=== PATIENT | female | born 1990 | race Caucasian/White ===

== ENCOUNTER 2024-08-14 08:07 | Outpatient (AMB) | payer BC, SELFPAY ==
--- NOTE | 2024-08-14 08:08 | A.OFFPC_ITS ---
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 Pt c/o shortness of breath and chest tightness when bending down on and off for 2 years started after the . Patient gained 20 lbs. Pt walks briskly daily for 3 miles and denies exercise induced chest pain no shortness a breath palpitations. Patient denies PND orthopnea. She has a miscarriage 2 months ago and is trying to get . [facility] Surgical History (Updated 08/14/24 @ 08:13 by JAGJIT Segura) Hx of appendectomy Family History (Updated 08/14/24 @ 08:33 by Liana Bravo MD) Father Hypertension Hyperlipemia Mother No problems noted. 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 1. Little interest or pleasure in doing things: not at all 2. Feeling down, depressed, or hopeless: not at all 3. Trouble falling or staying asleep, or sleeping too much: not at all 4. Feeling tired or having little energy: not at all 5. Poor appetite or overeating: not at all 6. Feeling bad about yourself - or that you are a failure or have let yourself or your family down: not at all 7. Trouble concentrating on things, such as reading the newspaper or watching television: not at all 8. Moving or speaking so slowly that other people could have noticed. Or the opposite - being so fidgety or restless that you have been moving around a lot more than usual: not at all 9. Thoughts that you would be better off or of hurting yourself in some way: not at all Total score: 0 Depression Screening Interpretation: Negative Depression Screening Done: Yes 39552 - PHQ-9 Billing: Yes Source: Developed by Drs. Siddhartha Hammer, Layla Weathers, Stephen Ramsey and colleagues, with an educational consuelo from [employer]. Thrive Questionnaire Date Thrive assessed: 08/14/24 I am a: Patient What is your living situation today?: I have a steady place to live Within the past 12 months, did the food you bought not last and you didn't have the money to get more?: Never true Within the past 12 months, did you worry whether your food would run out before you got money to buy more?: Never true Do you have trouble paying for medicines?: No Do you have trouble getting transportation to medical appointments?: No Do you have trouble paying your heating and electricity bill?: No Do you have trouble taking care of your child, family member or friend?: No Do you have trouble with day-to-day activities such as bathing, preparing meals, shopping, managing finances, etc.?: No Are you currently unemployed and looking for a job?: No Are you interested in more education?: No Please select the resources that you would like help with: None Currently or been in a relationship where the following occur: No concerns reported THRIVE Score: 0 AUDIT C Alcohol Use Questionnaire (AUDIT-C) 1. How often do you have a drink containing alcohol?: Never 3. How often do you have six or more drinks on one occasion?: Never Total Score: 0 MARGARITA-7 AMB Questionnaire MARGARITA-7 Date MARGARITA - 7 assessed: 08/14/24 Feeling nervous, anxious, or on edge: 0 = Not at all Not being able to stop or control worryin = Not at all Worrying too much about different things: 0 = Not at all Trouble relaxin = Not at all Being so restless that it is hard to sit still: 0 = Not at all Becoming easily annoyed or irritable: 0 = Not at all Feeling afraid as if something awful might happen: 0 = Not at all Total MARGARITA-7 score (0-4 normal; 5-9 mild; 10-14 moderate; 15-21 severe): 0 Source: Developed by Drs. Siddhartha Hammer, Layla Weathers, Stephen Ramsey and colleagues, with an educational consuelo from [employer]. MARGARITA-7 Assessment Billing MARGARITA-7 Assessment Tool: MARGARITA-7 Assessment 60712 Review of Systems Const All systems reviewed & are unremarkable except as noted in HPI and below Eyes Reports no additional complaints ENT Reports no additional complaints Card Reports no additional complaints Resp Reports no additional complaints GI Reports no additional complaints Reports no additional complaints Physical exam (Primary Care) Vital Signs: Last Vital Signs Pulse 67 08/14/24 08:09 BP 96/64 08/14/24 08:09 Pulse Ox 98 08/14/24 08:09 Oxygen Delivery Method Room Air 08/14/24 08:09 BMI result Body Mass Index 28.2 Tobacco/Smoking Status: Tobacco use Status Tobacco use date assessed 08/14/24 08/14/24 08:17 Patient Tobacco Use Status Never used Tobacco 08/14/24 08:32 e-Cigarette/Vaping Use Never Used 08/14/24 08:32 PHQ-9: PHQ-9 Score PHQ-9: Total score 0 08/14/24 08:29 Depression Screening Interpretation: Negative Thrive Assessment: Date of Thrive Assessment Date Thrive assessed 08/14/24 08/14/24 08:17 Currently or been in a relationship where the following occur: No concerns reported Const General: no acute distress HENMT Head: Yes normal to inspection Face and sinus: Yes normal facial exam Throat: Yes posterior oropharynx normal Eyes General: appearance normal, both eyes and all related structures Chest Chest palpation & inspection: normal inspection of the chest Resp Effort & Inspection: normal respiratory effort Auscultation: clear to auscultation bilaterally Cardio Rhythm: regular rhythm Heart sounds: S1 normal heart sound present and S2 normal heart sound present GI Inspection: Yes normal to inspection Palpation (GI): Soft to palpation Percussion: Yes normal to percussion Auscultation: normal bowel sounds Coding Level of Care Code New Pt Prev Care 18-39yr(22196 Diagnoses Annual physical exam Z00. SOB (shortness of breath) R06.02 Iron deficiency anemia D50.9 Additional Codes MARGARITA-7 Assessment Billing - MARGARITA-7 Assessment Tool: MARGARITA-7 Assessment 67068 ([id number]) PHQ-9 - 60792 - PHQ-9 Billing: Yes ([id number]) Assessment & Plan Assessment & Plan (1) Annual physical exam: Code(s): Z00. - Encounter for general adult medical examination without abnormal findings Category: Medical Plan: Well-balanced diet regular physical activity discussed with the patient she will return for fasting blood work. Patient is established with OBGYN (2) SOB (shortness of breath): Code(s): R06.02 - Shortness of breath Category: Medical Plan: Obtain chest x-ray and echocardiogram (3) Iron deficiency anemia: Code(s): D50.9 - Iron deficiency anemia, unspecified Category: Medical Plan: Check iron count continue iron supplement Orders: Orders Comprehensive [place]. Panel Fast Today Z00.00 - Encounter for general adult medical examination without abnormal findings Lipid Panel Today Z00.00 - Encounter for general adult medical examination without abnormal findings CA echo transthoracic complete Today R06.02 - Shortness of breath XR chest 1V Today R06.02 - Shortness of breath Complete Blood Count Auto Diff Today Z00.00 - Encounter for general adult medical examination without abnormal findings IRON PROFILE Today Z00.00 - Encounter for general adult medical examination without abnormal findings TSH reflex Free T4 Today Z00.00 - Encounter for general adult medical examination without abnormal findings UA w Microscopic Today Z00.00 - Encounter for general adult medical examination without abnormal findings Vitamin D 25-OH Total Today Z00.00 - Encounter for general adult medical ex amination without abnormal findings
[2024-08-14 08:09] VITALS: BP 96/64; PULSE 67; O2SAT 98; BMI 27.3
== END 2024-08-14 09:15 | disposition home or self-care (01) ==
PROVIDERS: Visit Provider Internal Medicine
DX: Z00.00 Encounter for general adult medical examination without abnormal findings (principal); R06.02 Shortness of breath; D50.9 Iron deficiency anemia, unspecified

== ENCOUNTER → 2024-08-14 08:07 | Outpatient (BNVA) | payer BC, SELFPAY | PROVIDERS: Visit Provider Internal Medicine | DX: Z00.01 Encounter for general adult medical examination with abnormal findings (principal); R06.02 Shortness of breath; D50.9 Iron deficiency anemia, unspecified | CPT/HCPCS: 96127 ==

== ENCOUNTER 2024-08-16 08:35 | Outpatient (REF) | payer BC, SELFPAY ==
[2024-08-16 10:11] LABS: MANUAL DIFF FLAG NO
[2024-08-16 10:15] LABS: Appearance Urine Clear; Color Urine Yellow; Glucose Urine UA Negative (Negative); Leukocyte Esterase Urine Trace (Negative); Nitrite Urine Negative (Negative); UMIC TRIGGER UA YES; Urine Blood Negative (Negative); Urine Ketones Negative (Negative); Urine Protein Negative (Neg-Trace)
[2024-08-16 10:19] LABS: Bacteria Urine None Seen (None Seen); Hyaline Casts Urine 0-2 /LPF (0-2); RBC Urine 0-2 /HPF (0-2); WBC Urine 0-5 /HPF (0-5)
[2024-08-16 10:22] LABS: Basophils Percent Auto 0.6 % (0-2); Eosinophils Absolute Auto 0.1 X10*3/uL (0.0-0.4); Hematocrit 37.2 % (37.0-47.0); Hemoglobin 12.6 g/dl (12.0-16.0); Imm Gran Abs Auto 0.01 X10*3/uL (0.00-0.03); Imm Gran Pct Auto 0.1 % (0.0-0.4); Lymphocytes Absolute Auto 2.5 X10*3/uL (1.2-4.9); Lymphocytes Percent Auto 35.8 % (20-40); Mean Corpuscular HGB Conc 33.9 g/dl (31.0-35.0); Mean Corpuscular Hemoglobin 29.6 pg (27.0-33.0); Mean Corpuscular Volume 87.5 fL (80.0-98.0); Mean Platelet Volume 8.9 fL (9.4-12.3); Monocytes Absolute Auto 0.5 X10*3/uL (0.1-1.2); Monocytes Percent Auto 7.4 % (2-11); Neutrophils Absolute Auto 3.7 x10*3/uL (2.0-8.3); Neutrophils Percent Auto 54.1 % (45-73); Platelet Count 264 X10*3/uL (160-400); Red Blood Count 4.25 X10*6/uL (4.20-5.50); Red Cell Distribution Width 12.1 % (11.0-16.0); White Blood Count 6.9 X10*3/uL (4.8-10.8)
[2024-08-16 10:52] LABS: Alanine Aminotransferase 17 U/L (0-31); Albumin Level 4.1 g/dL (3.5-5.0); Alkaline Phosphatase 53 U/L (39-117); Anion Gap 9 (12-20); Aspartate Amino Transferase 21 U/L (5-31); Bilirubin Total 0.5 mg/dL (0.0-1.0); Blood Urea Nitrogen 12 mg/dL (9-16); Calcium 9.3 mg/dL (8.4-10.2); Carbon Dioxide 26 mmol/L (22-29); Chloride 105 mmol/L (96-108); Cholesterol 164 mg/dL (<200); Estimated Glomerular Filt Rate > 60; Glucose Fasting 87 mg/dL (60-99); HDL Cholesterol 42 mg/dL (>40); Iron 143 mcg/dL (30-160); LDL Cholesterol Calculated 111 mg/dL (<100); Percent Iron Saturation 48 % (15-50); Potassium 4.3 mmol/L (3.3-5.1); Sodium 136 mmol/L (135-145); TSH reflex Free T4 1.45 uIU/mL (0.32-4.0); Total Iron Binding Capacity 297 mcg/dL (228-428); Total Protein 7.4 g/dL (6.5-8.0); Triglycerides 58 mg/dL (<150); Unsaturated Iron Binding 154 ug/dL; Vitamin D 25-OH Total 44.8 ng/mL (>30)
== END 2024-08-16 08:36 | disposition home or self-care (01) ==
LOC: HO.HMGCLDS 08:35
PROVIDERS: PCP Internal Medicine; Visit Provider Internal Medicine
DX: Z00.00 Encounter for general adult medical examination without abnormal findings (principal)
CPT/HCPCS: 36415; 80053; 80061; 81001; 82306; 83540; 84443; 85025

== ENCOUNTER → 2024-09-11 09:56 | Outpatient (REF) | payer BC, SELFPAY ==
--- NOTE | 2024-09-11 09:59 | CA_ITS ---
Transthoracic Echocardiogram Patient (Last, First, Middle): Tegan Douglas, Gender: Female Date of : 1990 Age: 34 Procedure Date: 09/11/2024 Procedure Type: Transthoracic Echocardiogram Location: OP Height: 160.02 cm Weight: 69.85 kg BSA: 1.73 m2 Heart Rate: 67 bpm BP: 96 / 64 mmHg Breakdown Person: SB Referring MD: Liana Bravo MD Symptoms: R06.02 - Shortness of breath Study Quality: Adequate ECG Rhythm: Sinus Conclusions: - The left ventricular systolic function is normal. The calculated ejection fraction is 63% by biplane method. - No obvious valvular pathology seen on this study. Findings Left Ventricle Normal left ventricular cavity size. There is normal left ventricular wall thickness. The left ventricular systolic function is normal. The calculated ejection fraction is 63% by biplane method. There is no evidence of regional wall motion abnormalities. Diastolic function is normal for age. Right Ventricle Normal right ventricular cavity size and systolic function. Atria Both atria are normal in size. Aortic Valve There is a normal trileaflet aortic valve. There is no aortic valve stenosis. There is no aortic valve regurgitation. Mitral Valve The mitral valve appears normal. There is trace mitral valve regurgitation. There is no mitral valve stenosis. Pulmonic Valve The pulmonic valve is likely normal. Tricuspid Valve Normal tricuspid valve structure. There is trace tricuspid valve regurgitation. There is no evidence of pulmonary hypertension. Great Vessels The asc aorta and aortic arch are normal in size. Venous The inferior vena cava is normal in size and collapses greater than 50% with inspiration. Pericardium/Pleural There is no evidence of pericardial effusion. Prior Study Comparison No prior study available for comparison. Recommendations, Care & Conclusions No obvious valvular pathology seen on this study. Measurements 2D Linear Measurements IVSd: 0.86 0.6-0.9/0.6-1.0 cm LVIDd: 4.82 3.9-5.3/4.2-5.9 cm LVIDd Index: 2.79 2.4-3.2/2.2-3.1 cm/m2 LVIDs: 2.84 2.0-3.6 cm LVPWd: 0.65 0.7-1.1 cm LA Diam: 3.60 2.7-3.8/3.0-4.0 cm LAIDs Index: 2.08 1.5-2.3 cm/m2 LV Mass: 147.70 67-162/88-224 g LV Mass Index: 85.37 43-95/49-115 g/m2 LVOT Diam: 2.00 3.0+(-)1.3 cm 2D Systolic Function EF 4C: 57.90 >55% EF 2C: 68.10 >55% EF BiP: 62.60 >55% Mitral Valve MV Pk E: 0.72 MV PK A: 0.46 MV Decel Time: 158.00 E/A: 1.50 E'Lateral: 10.80 E'Medial: 5.98 E/E' Med: 12.00 E/E' Lat: 6.60 PHT: 46.00 MVA PHT: 4.78 Decel [place]: 4.54 Aortic Valve AoV Pk Parveen: 1.27 AoV Pk Grad: 6.00 TATUM: 2.73 LVOT LVOT Pk Parveen: 1.07 LVOT Mn Parveen: 0.75 LVOT VTI: 0.23 LVOT Pk Grad: 5.00 LVOT Mn Grad: 3.00 LVOT Diam: 2.00 LVOT Area: 3.14 Diastolic Function MV Pk E: 0.72 MV Pk A: 0.46 E/A: 1.50 E'Medial: 5.98 E/E' Med: 12.00 E' Laterial: 10.80 E/E' Lat: 6.60 Right Ventricle TAPSE (mm): 20.40 TVS' Parveen: 14.00 Tricuspid Valve TR Pk Parveen: 1.96 TR Pk Grad: 15.00 RA Press: 3.00 RVSP: 18.00 Great Vessels Aorta Sinus of Valsalva: 2.80 2.0-3.5 cm Ao Asc: 2.80 2.1-3.4 cm Ao Arch: 2.30 Pulmonary Valve PV Pk Parveen: 0.91 Peak PV Grad: 3.00 Updated in Other Vendor System with Status of Final Edgar Uribe MD electronically signed on 09/12/2024 3:56:53 PM with status of Final
== END ==
LOC: HO.CARD 09:56
PROVIDERS: PCP Internal Medicine; Visit Provider Internal Medicine
DX: R06.02 Shortness of breath (principal)
CPT/HCPCS: 93306

== ENCOUNTER → 2024-09-11 09:59 | Outpatient (BNV) | payer BC, SELFPAY | PROVIDERS: PCP Internal Medicine; Visit Provider Internal Medicine | DX: R06.02 Shortness of breath (principal) | CPT/HCPCS: 93306 ==

== ENCOUNTER 2025-08-26 08:09 | Outpatient (AMB) | payer BC, SELFPAY ==
[2025-08-26 08:11] VITALS: BP 106/70; PULSE 66; RESP 16; TEMP 36.8; O2SAT 96; BMI 25.9
--- NOTE | 2025-08-26 08:11 | A.OFFPC_ITS ---
Vital Signs 08/26/25 08:11 Height 5 ft 3 in Weight 146 lb BMI 25.9 BP 106/70 Blood Pressure Location Lt brachial Position Sitting Respiration 16 Pulse 66 Pulse Source Pulse Oximeter Temp 98.2 F Temp Source Oral Pulse Oximetry (%) 96 Oxygen Delivery Method Room Air Intake Visit Reasons: PE Intake Note: Pt is here today for PE. Allergies No Known Allergies Allergy (Verified 08/26/25 08:13) Medication List - Last Reconciled 08/26/25 by Liana Bravo MD multivitamin with iron (Daily Vitamin with Iron) PO Tobacco use date assessed: 08/26/25 Dental Screening Dental Screen Date: 08/26/25 Did you have a dental visit in the last 12 months?: Yes Did you have a dental problem in the last 6 months where you did not have access to dental care?: No Was dental information given to patient?: Patient has dentist HPI PE HPI Details Pt presents for PE. Patient had a baby boy 4 months ago. She had severe iron deficiency anemia during the and received iron infusion [facility] Medical History (Updated 08/26/25 @ 08:28 by Liana Bravo MD) Annual physical exam Iron deficiency anemia Surgical History Hx of appendectomy Family History Father Hypertension Hyperlipemia Mother No problems noted. 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 1. Little interest or pleasure in doing things: not at all 2. Feeling down, depressed, or hopeless: not at all 3. Trouble falling or staying asleep, or sleeping too much: not at all 4. Feeling tired or having little energy: not at all 5. Poor appetite or overeating: not at all 6. Feeling bad about yourself - or that you are a failure or have let yourself or your family down: not at all 7. Trouble concentrating on things, such as reading the newspaper or watching television: not at all 8. Moving or speaking so slowly that other people could have noticed. Or the opposite - being so fidgety or restless that you have been moving around a lot more than usual: not at all 9. Thoughts that you would be better off or of hurting yourself in some way: not at all Total score: 0 Depression Screening Interpretation: Negative Depression Screening Done: Yes 40834 - PHQ-9 Billing: Yes Source: Developed by Drs. Siddhartha Hammer, Layla Weathers, Stephen Ramsey and colleagues, with an educational consuelo from [employer]. Thrive Questionnaire Date Thrive assessed: 08/26/25 I am a: Patient What is your living situation today?: I have a steady place to live Within the past 12 months, did the food you bought not last and you didn't have the money to get more?: Never true Within the past 12 months, did you worry whether your food would run out before you got money to buy more?: Never true Do you have trouble paying for medicines?: No Do you have trouble getting transportation to medical appointments?: No Do you have trouble paying your heating and electricity bill?: No Do you have trouble taking care of your child, family member or friend?: No Do you have trouble with day-to-day activities such as bathing, preparing meals, shopping, managing finances, etc.?: No Are you currently unemployed and looking for a job?: No Are you interested in more education?: No Please select the resources that you would like help with: None Currently or been in a relationship where the following occur: No concerns reported THRIVE Score: 0 AUDIT C Alcohol Use Questionnaire (AUDIT-C) 1. How often do you have a drink containing alcohol?: Never 3. How often do you have six or more drinks on one occasion?: Never Total Score: 0 MARGARITA-7 AMB Questionnaire MARGARITA-7 Date MARGARITA - 7 assessed: 08/26/25 Feeling nervous, anxious, or on edge: 0 = Not at all Not being able to stop or control worryin = Not at all Worrying too much about different things: 0 = Not at all Trouble relaxin = Not at all Being so restless that it is hard to sit still: 0 = Not at all Becoming easily annoyed or irritable: 0 = Not at all Feeling afraid as if something awful might happen: 0 = Not at all Total MARGARITA-7 score (0-4 normal; 5-9 mild; 10-14 moderate; 15-21 severe): 0 Source: Developed by Drs. Siddhartha Hammer, Layla Weathers, Stephen Ramsey and colleagues, with an educational consuelo from [employer]. MARGARITA-7 Assessment Billing MARGARITA-7 Assessment Tool: MARGARITA-7 Assessment 35843 Review of Systems Const All systems reviewed & are unremarkable except as noted in HPI and below Eyes Reports no additional complaints ENT Reports no additional complaints Card Reports no additional complaints Resp Reports no additional complaints GI Reports no additional complaints Reports no additional complaints Physical exam (Primary Care) Vital Signs: Last Vital Signs Temp 98.2 F 08/26/25 08:11 Pulse 66 08/26/25 08:11 Resp 16 08/26/25 08:11 BP 106/70 08/26/25 08:11 Pulse Ox 96 08/26/25 08:11 Oxygen Delivery Method Room Air 08/26/25 08:11 BMI result Body Mass Index 25.9 Tobacco/Smoking Status: Tobacco use Status Tobacco use date assessed 08/26/25 08/26/25 08:17 Patient Tobacco Use Status Never used Tobacco 08/26/25 08:11 e-Cigarette/Vaping Use Never Used 08/26/25 08:11 PHQ-9: PHQ-9 Score PHQ-9: Total score 0 08/26/25 08:17 Depression Screening Interpretation: Negative Thrive Assessment: Date of Thrive Assessment Date Thrive assessed 08/26/25 08/26/25 08:19 Currently or been in a relationship where the following occur: No concerns reported Const General: no acute distress HENMT Head: Yes normal to inspection Ears: TM's normal bilaterally Mouth: Normal oral and palatal mucosa present Throat: Yes posterior oropharynx normal Eyes General: appearance normal, both eyes and all related structures Neck Neck: Yes no lymphadenopathy and Yes supple Resp Effort & Inspection: normal respiratory effort Auscultation: clear to auscultation bilaterally Cardio Rhythm: regular rhythm Heart sounds: S1 normal heart sound present and S2 normal heart sound present GI Inspection: Yes normal to inspection Palpation (GI): Soft to palpation Percussion: Yes normal to percussion Auscultation: normal bowel sounds Office Procedures Flu Questionnaire Does the patient have a severe egg allergy?: No Does the patient have severe life threatening allergies?: No Does the patient have a fever or illness today?: No Has the patient ever had Guillain-[employer] Syndrome?: No Has the patient ever had any past reaction to a flu shot?: No Immunizations Fluarix [id number] (PF) 45 mcg (15 mcg x 3)/0.5 mL IM syringe Performing Provider: Liana Bravo MD Performing Location: [facility] Administered by: JAGJIT Segura on 08/26/25 08:38 Dose Route Admin Location Dispensed Lot Number Expiration Date NDC Probate Paralegal 0.5 mL IM Left Deltoid 0.5 mL [id number] 03/24/26 12026-062-25 [employer] VIS Given Date VIS Provided VIS Publication Date 08/26/25 Single Vaccine 24 Eligibility Eligibility Date Funding Source Not [facility] Eligible 08/26/25 Private Coding Level of Care Code Est Pt Prev Care 18-39y(75749) Diagnoses Iron deficiency anemia D50.9 Annual physical exam Z00.00 Additional Codes MARGARITA-7 Assessment Billing - MARGARITA-7 Assessment Tool: MARGARITA-7 Assessment 50419 ([id number]) PHQ-9 - 59519 - PHQ-9 Billing: Yes ([id number]) Assessment & Plan Assessment & Plan (1) Iron deficiency anemia: Code(s): D50.9 - Iron deficiency anemia, unspecified Category: Medical Plan: Continue multivitamin with iron check iron and CBC count today (2) Annual physical exam: Code(s): Z00.00 - Encounter for general adult medical examination without abnormal findings Category: Medical Plan: Well-balanced diet regular physical activity discussed with the patient she is 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 Panel Fast Today D50.9 - Iron deficiency anemia, unspecified, Z00.00 - Encounter for general adult medical examination without abnormal findings Hemoglobin A1c Today D50.9 - Iron deficiency anemia, unspecified, Z00.00 - Encounter for general adult medical examination without abnormal findings Complete Blood Count Auto Diff Today D50.9 - Iron deficiency anemia, unspecified, Z00.00 - Encounter for general adult medical examination without abnormal findings
--- OUTSIDE RECORDS SUMMARY | 2025-08-26 08:14 | XMS_ITS | Clinical Summary ---
Author Organization [facility] Address [address] [place] [address] Phone Care Team Providers Care [employer] Repairer Name Role Phone Lavonne Valdivia MD Primary Care Provider [phone] Allergies No known active allergies Medications vit no.124/iron/foli c ( VITAMIN ORAL) Take 1 tablet by mouth daily. Active ibuprofen (ADVIL,MOTRIN) 600 MG tablet Take 1 tablet (600 mg total) by mouth every 6 (six) hours as needed. 60 tablet 1 02/15/2022 Active Active Problems Problem Noted Date Diagnosed Date Diastasis of rectus abdominis 06/05/2022 Assessment & Plan (06/05/2022 11:43 AM EDT): Patient is 3 months pp. Small diastasis recti. Discussed PT referral, pt expressed interest, referral placed. Routine health maintenance 06/01/2022 Assessment & Plan (06/05/2022 11:41 AM EDT): CPE: 06/05/2022 3.5 months , s/p , currently Diet and exercise: Healthy diet, regular exercise counseling Immunizations: Due for flu shot, do not have in the office today, will get from local pharmacy Colon cancer screening: Avg risk, start discussing screening at age 45. Cervical cancer screening: NILM, HPV negative in 10/2020, next pap due in 10/2025 Breast cancer screening: Avg risk, start discussing screening at age 40. STI screening: negative 06/2021 HIV/Hep C: Negative 06/2021 CVD risk management: lipids, A1c ordered Depression/anxiety screening: phq2, gad2 negative SDOH screening: negative Dental screening: Due, will schedule Medications: Reviewed and reconciled Encounter to establish care 06/01/2022 Assessment & Plan (06/05/2022 11:36 AM EDT): 31 year old female presents to establish care with new PCP, see routine health maintenance for assessment and plan. DENISSE (iron deficiency anemia) 06/01/2022 Assessment & Plan (06/05/2022 11:35 AM EDT): History of DENISSE during , currently taking ferrous sulfate 325mg BID. Repeat CBC today, as ordered by OB. Consider daily, every other day, or DC if H/H improved. Research study patient 02/14/2022 Overview (02/14/2022): The patient is enrolled in the 4P Study and documentation of informed consent was performed. Following delivery, she will be contacted for a brief perineal symptom survey. Bilateral carpal tunnel syndrome 12/08/2021 Overview (04/15/2022): Had bilateral carpal tunnel prior to now worse, using soft splint, will try hard split on right, comfort mesures d/wpt. Warm water helps. Splint helped right will try left. 04/13/22 f/u orthopedic hand service Dr Martin as still having issues w/ wrists bilaterally pp Assessment & Plan (06/05/2022 11:36 AM EDT): She used splint since baby born, sx improved ~6 weeks . Never saw ortho hand, used wrist splint during . Follow up if sx reoccur. Assessment & Plan (02/03/2022 12:49 AM EDT): Still issue using splints Family history of factor V Leiden mutation 11/30 Overview (10/05/2021): Mother had factor v leiden mutation. Pt had testing which was negative for factor v leiden. Family history of deep venous thrombosis 021 Overview (09/07/2021): Grandfather had dvt and pe Mother had something similar, not sure if on blood thinner Her mother had factor v leiden 01/11/21 RESULT: [id number] PROTHRO GENE MUT : Negative APCR-MUT : Negative APCR : 3.4 (NORMAL) PROT C FUNC : 94 (NORMAL) PROT S : 81 (NORMAL) INTERPRETATION: Protein C activity level is in the reference range. Free protein S level is in the reference range. No evidence of activated protein C resistance, and, therefore, there is no evidence for a factor V Leiden. Direct genetic testing for the prothrombin [id number] mutation, performed at [facility], is negative. Direct genetic testing for the factor V Leiden mutation, performed at [facility], is negative. Pt tested all negative for this patient so no special treatment needed Resolved Problems Problem Noted Date Diagnosed Date Resolved Date Normal intrauterine , antepartum 02/13/2022 04/12/2022 Anemia affecting , antepartum 11/10/2021 06/01/2022 Overview (04/15/2022): Third tri HCT 29.8. Fe script sent to pharmacy to take BID. (Colace also sent) Fe studies w/ low normal ferritin 21 and transferrin sat 16% and elevated tibc 478 c/w fe def. Recheck cbc in 4 weeks to see whether needs fe infusions. 12/08 Hgb 10.4 Hct 31.5; Will need repeat CBC and full anemia panel 01/05/22 hct up one point 31.5 to 32.6 and now fe just above nl 162 and fe sat better, don't think adding fe infusion would add anything so would keep her on fe bid 02/13/22 hct 32.7 check pp hct 04/13/22 on fe Rh negative status during pr egnancy in first trimester 07/15/2021 06/01/2022 Overview (12/07/2021): O neg [ ] Rhogam at 28wks or if bleeding, 11/10/21 o neg abs neg, rhogam given. [ ] Rhogam <48h of delivery if baby rh pos d/w pt H/O allergy to penicillin 07/15/2021 Overview (01/25/2022): Reports she was told she was given pcn as a baby and had bloody nose and hives. Never had pcn again. D/wpt will send allergy e consult re possible allergy testing if appropriate. Per Dr Oliver e consult which will review w/ pt next visit From the remote and minor reaction history, it is very likely that Tegan is no longer allergic. Allergy testing booked 12/14/21, negative testing, pcn allergy removed. Currently 07/15/2021 2 Overview (02/09/2022): Low Risk Visit Schedule: < 11 weeks RN telephone OB intake Initial Visit-10 weeks, plan visits every 4 weeks, neg cfdna boy aware 14-16 20 weeks with anatomic survey. 09/22/21 nl survey 20+3 wks edc 02/06 23+3 appt 28 weeks with GLT 129 and /3\ labs hct 29.8, TDAP done, Rhogam done, establish home BP cuff plan (i.e. patient opal provide or we will provide) 11/10/21 34 weeks Enrollment for Virtual visits. 37 weeks with GBS / neg pump form done pt needs to send in discuss contraception plan, condoms 38 weeks virtual visit 39 weeks virtual visit 40 weeks, and then scheduled induction 02/14 and bpp w/ efw 02/11 : Virtual visit(s) Currently 07/15/2021 1 Overview (08/10/2021): Resolve duplicate Immunizations Immunization Administration Dates Next Due Influenza Quadrivalent Preservative Free IM 06/26,08/12/2020 Rho (D) Immune Globulin 11/10/2021 Tdap 11/10/2021 Family History Medical History Relation Comments Hypertension Father Cervical cancer Maternal Aunt Clotting disorder Maternal Grandfather Diabetes Maternal Grandfather No Known Problems Maternal Grandmother Endometriosis Mother Venous thrombosis Mother Prostate cancer Paternal Grandfather No Known Problems Paternal Grandmother No Known Problems Son Relation Status Comments Father Alive Maternal Aunt Alive Maternal Grandfather Maternal Grandmother Alive Mother Alive Paternal Grandfather Paternal Grandmother Alive Son Alive Social History Tobacco Use Types Packs/Day Years Used Date Smoking Tobacco: Never Smokeless Tobacco: Never Alcohol Use Standard Drinks/Week Comments Not Currently 0 (1 standard drink = 0.6 oz pur e alcohol) occ Child or Family Care Answer Date Record ed Do you have problems with on e of the following making it difficult for you to work, study, or receive health care? No 06/01/2022 Education Answer Date Recorded Are you interested in more education? Not on nghia e 06/01/2024 Are you concerned about learning? Not on file 06/01/2024 No 06/01/2024 No 06/01/2024 Food Answer Date Recorded Within the past 6 months we worried whether our food would run out before we got money to buy more. Never True 06/01/2022 Within the past 6 months the food we bought just didn't last and we didn't have enough money to get more. Never True Residential Stability Answer Date Recor ded What is your housing situation today? I have leida sing 06/01/2022 How many times have you move d in the past 12 months? Zero (I did not move) 06/01/2022 06 Are you worried that in t he next 2 months, you may not have your own housing to live in? No 06/01/2022 Paying for Meds Answer Date Recorded Do you have trouble paying for medicines? No 06/01/2022 Paying Utility Bills Answer Date Record ed Do you have trouble paying your heating or elect ricity bill? No 06/01/2022 Transportation Answer Date Recorded Has the lack of transportati on kept you from medical appointments or from getting medications? No 06/01/2022 Unemployment Answer Date Recorded Are you currently unemployed or working on a part-time or temporary basis, and looking for work? No 06/01/2022 Digital Access Answer Date Recorded No 02/18/2023 No 02/18/2023 No 02/18/2023 Reliable internet access at home? Not on file 02/18/2023 Device with a working camera? 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 Not on file Not on nghia e Not on file Last Filed Vital Signs Vital Sign Reading Time Taken Comments Blood Pressure 110/72 06/01/2022 2:32 PM EDT Pulse 74 06/01/2022 2:32 PM EDT Temperature 36.6 C (97.9 F) 02/15/2022 9:37 AM EDT Respiratory Rate 18 02/15/2022 9:37 AM EDT Oxygen Saturation 98% 02/15/2022 9:37 AM EDT Inhaled Oxygen Concentration - - Weight 67.9 kg (149 lb 12.8 oz) 06/01/2022 2:32 PM EDT Height 157.5 cm (5' 2 ) 02/13/2022 12:1 2 PM EDT Body Mass Index 27.4 02/13/2022 12:12 PM EDT Plan of Treatment Health Maintenance Due Date Last Done Comments DEPRESSION SCREENING 06/01/2023 06/01/2022 PAP SMEAR 11/16/2023 11/16/2020 INFLUENZA VACCINE (#1) 2025 07/14/2021, 2019 COVID-19 VACCINE (2024- season) 2025 09/16/2021, 02/06/2021, 01/09/2021 Adult Td,Tdap Booster 11/10/2031 11/10/2021 HEPATITIS C SCREENING Completed 07/14/2021 , 07/14/2021, 07/14/2021, Additional history exists HIV ONE-TIME SCREENING (18-65 YEARS) Completed 07/14/2021 SMOKING STATUS SCREENING (Once After 26 Yrs) Completed 06/01/2022 HEPATITIS A VACCINES Aged Out No long er eligible based on patient's age to complete this topic HIB VACCINES Aged Out No longer eligi ble based on patient's age to complete this topic MENINGOCOCCAL VACCINES (ACWY) Aged Out No longer eligible based on patient's age to complete this topic MENINGOCOCCAL VACCINES (B) Aged Out N o longer eligible based on patient's age to complete this topic PNEUMOCOCCAL VACCINES (0-49 years) Aged Out No longer eligible based on patient's age to complete this topic Medical Devices Not on file Procedures Procedure Name Priority Date/Time Associated Diagnosis Comments HEPATITIS C ANTIBODY, QUALITATIVE Routine 07/14/2021 10:28 AM EDT PAP TEST Routine 11/16/2020 12:00 AM EST from Last 3 Months or Most Recently Relevant to Health Maintenance Results * Hepatitis C antibody, qualitative (07/14/2021 10:28 AM EDT) HCV ANTIBODY Negative Negative [facility] Comment:Antibodies to HCV no t detected. Does not exclude the possibility of exposure to HCV. Blood 07/14/2021 10:2 8 AM EDT 07/14/2021 11:01 AM EDT us Tarsha Radford MD LAB BLOOD BKR [place]AB[place] [address] * Pap Smear (11/16/2020 12:00 AM EST) 11/16/2020 11/18/2020 Narrative [facility] - 11/26/2020 1:25 PM EST CASE: [id number] PATIENT: TEGAN DOUGLAS Date: 1990 Sex: F [facility] Department of Pathology [address] [place] [address] CLIA License No.: [id number] Pulmonary Physical Therapist: Dr. Parker Miller Physician: SARAH SAPP M.D. Procedure Date: 11/16/2020 Software Program Manager: DOMINIK Smith (ASCP) RAIL FLAW DETECTOR OPERATOR Molecular Addendum THINPREP PAP TEST, CERVICAL FINAL CYTOLOGIC INTERPRETATION SPECIMEN ADEQUACY: Satisfactory for evaluation; transformation zone present. INTERPRETATION: NEGATIVE FOR INTRAEPITHELIAL LESION OR MALIGNANCY. AUTOMATED REVIEW: This specimen was prescreened using the ThinPrep Imaging System. CLINICAL DATA LMP: 10/28/20; Last pap 2018. TOTAL SLIDES 1 PROCEDURES Screening or High Risk ThinPrep with Auto Pre-Screen - [facility] 1 Final Diagnosis by Kenya LEHMAN (ASCP), Electronically signed on Tuesday November 24, 2020 at 10:55:11AM ADDENDUM HPV TEST: Negative for messenger RNA (mRNA) of the high-risk human papillomavirus (HPV) types 16, 18, 31, 33, 35, 39, 45, 51, 52, 56, 58, 59, 66, and 68 by Aptima HPV assay. [facility] Molecular Diagnostics & Histocompatibility Lab [facility] [address] #: [id number] Pulmonary Physical Therapist: Maxwell Li MD Final Diagnosis by Kenya LEHMAN (ASCP), on Tuesday November 24, 2020 at 10:55:11AM HPV Addendum by Anny Jones, Electronically signed on November at 01:25:43PM us Sarah Sapp MD, MPH CYTOLOGY ORDERABLE S Edited Result - Final Performing Organization Address City/State/[facility] Co de Phone Number [facility] [address] [place] [phone] from Last 3 Months or Most Recently Relevant to Health Maintenance Insurance [place] [address] Member Subscriber Plan / Payer (Ef fective 2022-Present) Name:Tegan Douglas Relation to Subscriber:Spouse Name:MEL NARANJOANDRE Zamora Date of :1991 (Home) Address: [address] [place] [address] Payer ID:[id number] (NAIC) Type:O Address: [address] [place], [place] [address] [facility] Advance Directives For more information, please contact: [phone] (9AM - 5PM [facility], Monday-Monday) Documents on File Type Date Recorded Patient Stick Puller Expl anation Healthcare Proxy 02/03/2022 Healthcare Proxy * Full Code (Latest Code Status on File) Date Activated Date Inactivated Comments 02/13/2022 12:38 PM Question Answer Comments Code Status Confirmed With: Patient Care Teams [employer] Repairer Relationship Specialty Start Date End Date Lavonne Valdivia MD [address] [place] [address] [email or web address] PCP - General Family Medicine 04/22/22 Additional Source Comments The information contained in this document represents components of the legal health record. It is not the complete legal health record.[facility]
--- OUTSIDE RECORDS SUMMARY | 2025-08-26 08:14 | XMS_ITS | Encounter Summary ---
Author Organization [facility] Address [address] [place] [address] Phone Care Team Providers Care Rail Loader Name Role Phone Pcp, Unknown Primary Care Provider Unavailabl e Mamta Campuzano MD Unavailable Mamta Campuzano MD Primary Care Provider [email or web address] Lavonne Valdivia MD Primary Care Provider [phone] Lavonne Valdivia MD Unavailable Encounter Details Date Type Department Care Team (Late st Contact Info) Description 07/15/2020 Telephone [facility] OBGYN Gynecology Resident [address] [place] [phone] Unknown, Unknown, Social History Tobacco Use Types Packs/Day Years Used Date Smoking Tobacco: Never Assessed Comments Unknown Sex and Gender Information Value Date Recorded Sex Assigned at Female 07/09/2020 2:40 PM EDT Legal Sex Female 2:31 PM EDT Gender Identity Female 07/09/2020 2:40 PM EDT Sexual Orientation Straight 07/09/2020 2: 40 PM EDT documented as of this encounter Plan of Treatment Not on file documented as of this encounter Visit Diagnoses Not on filedocumented in this encounter Care Teams Rail Loader Relationship Specialty Start Date End Date Pcp, Unknown PCP - General 07/09/20 09/15/21 Mamta Campuzano MD PCP - General Family Medicine 09/22/21 04/21/22 Lavonne Valdivia MD [address] [place] [address] [email or web address] PCP - General Family Medicine 04/22/22 Mamta Campuzano MD [email or web address] Insurance Assigned Provider 08/01/2008/25 Lavonne Valdivia MD [address] [place] [address] [email or web address] Insurance Assigned Provider 12/30/23 11/30/24 documented as of this encounter Additional Source Comments The information contained in this document represents components of the legal health record. It is not the complete legal health record.[facility]
== END 2025-08-26 09:14 | disposition home or self-care (01) ==
LOC: HO.HMCC 08:10
PROVIDERS: Visit Provider Internal Medicine
DX: Z00.00 Encounter for general adult medical examination without abnormal findings (principal); D50.9 Iron deficiency anemia, unspecified; Z23 Encounter for immunization

== ENCOUNTER 2025-08-26 08:09 | Outpatient (REF) | payer BC, SELFPAY ==
[2025-08-26 10:11] LABS: MANUAL DIFF FLAG NO
[2025-08-26 10:21] LABS: Hematocrit 37.8 % (37.0-47.0); Hemoglobin 12.6 g/dl (12.0-16.0); Imm Gran Abs Auto 0.03 X10*3/uL (0.00-0.03); Imm Gran Pct Auto 0.4 % (0.0-0.4); Lymphocytes Absolute Auto 2.1 X10*3/uL (1.2-4.9); Mean Corpuscular HGB Conc 33.3 g/dl (31.0-35.0); Mean Corpuscular Hemoglobin 30.1 pg (27.0-33.0); Mean Corpuscular Volume 90.4 fL (80.0-98.0); NRBC Abs Auto 0.000 X10*3/uL (0.0-0.012); NRBC Pct Auto 0.0 /100WBC (0.0-0.2); Platelet Count 219 X10*3/uL (160-400); Red Blood Count 4.18 X10*6/uL (4.20-5.50); White Blood Count 8.1 X10*3/uL (4.8-10.8)
[2025-08-26 10:44] LABS: Alanine Aminotransferase 32 U/L (0-31); Albumin Level 4.6 g/dL (3.5-5.0); Alkaline Phosphatase 87 U/L (39-117); Anion Gap 9 (12-20); Aspartate Amino Transferase 23 U/L (5-31); Blood Urea Nitrogen 12 mg/dL (9-16); Calcium 9.5 mg/dL (8.4-10.2); Carbon Dioxide 28 mmol/L (22-29); Chloride 108 mmol/L (96-108); Estimated Glomerular Filt Rate > 60; Iron 100 mcg/dL (30-160); Percent Iron Saturation 37 % (15-50); Potassium 4.1 mmol/L (3.3-5.1); Sodium 141 mmol/L (135-145); Total Iron Binding Capacity 269 mcg/dL (228-428); Total Protein 7.4 g/dL (6.5-8.0); Unsaturated Iron Binding 169 ug/dL
== END 2025-08-26 08:10 | disposition home or self-care (01) ==
LOC: HO.HMGCLDS 08:09
PROVIDERS: PCP Internal Medicine; Visit Provider Internal Medicine
DX: Z00.00 Encounter for general adult medical examination without abnormal findings (principal); Z13.31 Encounter for screening for depression; Z13.39 Encounter for screening examination for other mental health and behavioral disorders; Z23 Encounter for immunization; Z13.1 Encounter for screening for diabetes mellitus; D50.9 Iron deficiency anemia, unspecified
CPT/HCPCS: 36415; 80053; 83036; 83540; 85025; 90471; 90656; 96127